=== PATIENT | male | born 1965 | race African-American/Black ===

== ENCOUNTER 2018-06-14 00:14 | Emergency (ER) | payer MEDICARE, MEDICAID ==
[~2018-06-14] VITALS: Ht 185.4 cm; Wt 68.0 kg
[2018-06-14] MEDS ORDERED: ONDANSETRON HCL 4MG/2ML VIAL IV STA (01:38)
[2018-06-14] MEDS ORDERED: MORPHINE SULFATE 4 MG/ML CPJ (NOT FOR IM USE) IV STA (01:38)
[2018-06-14] MEDS ORDERED: FUROSEMIDE 40MG/4ML VIAL IV ONE (01:45)
[2018-06-14 02:20] LABS: BASOPHILS % 0.6 % (0.0-2.0); HEMATOCRIT. 29.7 % (42.0-52.0); HEMOGLOBIN. 10.1 g/dL (14.0-18.0); LYMPHOCYTES % 14.6 % (20.0-50.0); MEAN CORPUSCULAR HEMOGLOBIN 31.1 pg (28.0-32.0); MEAN CORPUSCULAR VOLUME 91.8 fL (80.0-94.0); MEAN PLATELET VOLUME 10.1 fl (7.4-10.4); MONOCYTES % 3.4 % (2.0-8.0); NEUTROPHILS % 81.4 % (40.0-76.0); PLATELET 253 x1000/uL (130-400); RED BLOOD CELL COUNT 3.23 mill/uL (4.7-6.1); RED CELL DISTRIBUTION WIDTH 14.6 % (11.6-14.6)
[2018-06-14 02:23] LABS: CHLORIDE 107 mEq/L (98-107)
[2018-06-14 02:30] LABS: INR 1.1; PARTIAL THROMBOPLASTIN TIME 31.3 sec (23.4-31.0); PROTHROMBIN TIME 11.4 sec (9.1-11.1)
[2018-06-14 02:34] LABS: ETHANOL BLOOD < 10 mg/dL
[2018-06-14 02:53] LABS: CLARITY URINE CLEAR (CLEAR); COLOR URINE YELLOW (YELLOW); KETONES URINE NEGATIVE (NEGATIVE); LEUKOCYTE ESTERASE URINE NEGATIVE (NEGATIVE); NITRITE URINE NEGATIVE (NEGATIVE); OCCULT BLOOD URINE 1+ (NEGATIVE); PROTEIN URINE 3+ (NEGATIVE); SPECIFIC GRAVITY URINE 1.025 (1.005-1.030); UROBILINOGEN URINE 0.2 E.U./dL (0.2-1.0)
[2018-06-14] MEDS ORDERED: INSULIN REGULAR (HUMULIN R) 300UNITS/3ML SUBCUT ONE (03:00)
[2018-06-14 03:19] LABS: *AMPHETAMINES SCREEN URINE NEGATIVE (NEGATIVE); *BARBITURATES SCREEN URINE NEGATIVE (NEGATIVE); *BENZODIAZEPINES SCREEN URINE NEGATIVE (NEGATIVE); *COCAINE SCREEN URINE NEGATIVE (NEGATIVE); METHADONE URINE SCREEN NEGATIVE (NEGATIVE); OPIATES URINE SCREEN PRESUMTIVE POSITIVE (NEGATIVE)
[2018-06-14 03:20] LABS: CANNABINOID URINE SCREEN NEGATIVE (NEGATIVE); PHENCYCLIDINE URINE SCREEN NEGATIVE (NEGATIVE)
[2018-06-14 04:06] VITALS: BP 140/67
== END 2018-06-14 06:46 | disposition left against medical advice (07) ==
LOC: ER 00:14 → CANBEDREQ 06:47
DX: R06.02 Shortness of breath (principal); E87.5 Hyperkalemia; R60.1 Generalized edema; E11.65 Type 2 diabetes mellitus with hyperglycemia; I10 Essential (primary) hypertension; R91.8 Other nonspecific abnormal finding of lung field; Z98.890 Other specified postprocedural states
CPT/HCPCS: 36415; 71045; 80053; 80305; 81003; 82962; 83880; 84484; 85025; 85610; 85730; 93005; 93970; 96372; 96374; 96375; 99285; G0482; J1815; J1940; J2270; J2405

== ENCOUNTER 2018-06-14 22:45 | Emergency (ER) | payer MEDICARE, MEDICAID ==
[~2018-06-14] VITALS: Ht 185.4 cm; Wt 68.2 kg
[2018-06-15] MEDS ORDERED: KETOROLAC 30MG/ML VIAL IV ONE (00:30)
[2018-06-15] MEDS ORDERED: FUROSEMIDE 40MG/4ML VIAL IV ONE (00:30)
[2018-06-15 01:23] LABS: BASOPHILS % 1.1 % (0.0-2.0); HEMATOCRIT. 26.8 % (42.0-52.0); LYMPHOCYTES % 12.7 % (20.0-50.0); MEAN CORPUSCULAR HEMOGLOBIN 31.2 pg (28.0-32.0); MEAN CORPUSCULAR VOLUME 93.4 fL (80.0-94.0); MEAN PLATELET VOLUME 10.6 fl (7.4-10.4); MONOCYTES % 2.9 % (2.0-8.0); NEUTROPHILS % 83.3 % (40.0-76.0); PLATELET 213 x1000/uL (130-400); RED BLOOD CELL COUNT 2.87 mill/uL (4.7-6.1); RED CELL DISTRIBUTION WIDTH 14.2 % (11.6-14.6)
[2018-06-15 01:24] LABS: CHLORIDE 105 mEq/L (98-107)
[2018-06-15] MEDS ORDERED: KETOROLAC 60MG/2ML VIAL IM ONE (01:30)
[2018-06-15 01:34] LABS: INR 1.1; PARTIAL THROMBOPLASTIN TIME 29.6 sec (23.4-31.0); PROTHROMBIN TIME 11.4 sec (9.1-11.1)
[2018-06-15 01:35] LABS: BETA HYDROXYBUTYRATE 0.1 mMol/L (0.0-0.3)
[2018-06-15] MEDS ORDERED: INSULIN LISPRO 100 UNITS/ML SUBCUT NR ×2 (01:45→04:30)
[2018-06-15] MEDS ORDERED: SODIUM CHLORIDE 0.9% 1,000 ML IV ONE ×3 (01:45→06:49)
[2018-06-15] MEDS ORDERED: INSULIN GLARGINE UD 100 UNITS/ML SYR SUBCUT ONE (04:15)
[2018-06-15 06:40] VITALS: BP 172/111
[2018-06-15] MEDS ORDERED: INSULIN REGULAR (HUMULIN R) 300UNITS/3ML IV ONE (07:00)
[2018-06-16] MEDS ORDERED: IBUP-2030 PO (00:12)
[2018-06-16] MEDS ORDERED: AMLO10TA80 PO (00:12)
[2018-06-16] MEDS ORDERED: METF500T6 PO (00:12)
[2018-06-16] MEDS ORDERED: TEMA30CA PO (00:12)
[2018-06-16] MEDS ORDERED: INSU100I28 SQ (00:12)
[2018-06-16] MEDS ORDERED: LOSA50TA20 PO (00:12)
[2018-06-16] MEDS ORDERED: ATOR-2 PO (00:12)
[2018-06-16] MEDS ORDERED: METO25TA6 PO (00:12)
[2018-06-16] MEDS ORDERED: CLOP75TA33 PO (00:12)
[2018-06-16] MEDS ORDERED: ASPI-1159 PO (00:12)
== END 2018-06-15 07:28 | disposition left against medical advice (07) ==
LOC: ER 23:00 → EDBEDREQ 06-15 01:49 → EDBEDREQSVC 06-15 01:49 → EDBEDREQTM 06-15 01:49 → CANRESERV 06-15 02:23 → ENRESERV 06-15 02:23 → EDBEDREQ 06-15 04:27 → CANRESERV 06-15 06:54 → ENRESERV 06-15 06:54 → ER 06-15 07:28 → CANBEDREQ 06-15 07:30
DX: E11.65 Type 2 diabetes mellitus with hyperglycemia (principal); R60.0 Localized edema; R00.0 Tachycardia, unspecified; I11.9 Hypertensive heart disease without heart failure; C34.12 Malignant neoplasm of upper lobe, left bronchus or lung; Z95.1 Presence of aortocoronary bypass graft; Z92.21 Personal history of antineoplastic chemotherapy
CPT/HCPCS: 36415; 71045; 80053; 82010; 82947; 83880; 84484; 85025; 85610; 85730; 93005; 96372; 96374; 99285; J1815; J1885; J1940; J7030

== ENCOUNTER 2018-06-15 16:43 | Inpatient (IN) | payer MEDICARE, MEDICAID ==
[~2018-06-15] VITALS: Ht 185.4 cm; Wt 72.6 kg
[2018-06-15 19:08] LABS: CHLORIDE 104 mEq/L (98-107)
[2018-06-15 19:10] LABS: BASOPHILS % 0.7 % (0.0-2.0); HEMATOCRIT. 27.6 % (42.0-52.0); HEMOGLOBIN. 9.3 g/dL (14.0-18.0); LYMPHOCYTES % 8.1 % (20.0-50.0); MEAN CORPUSCULAR HEMOGLOBIN 30.8 pg (28.0-32.0); MEAN CORPUSCULAR VOLUME 91.5 fL (80.0-94.0); MEAN PLATELET VOLUME 10.5 fl (7.4-10.4); MONOCYTES % 2.6 % (2.0-8.0); NEUTROPHILS % 88.6 % (40.0-76.0); PLATELET 207 x1000/uL (130-400); RED BLOOD CELL COUNT 3.02 mill/uL (4.7-6.1); RED CELL DISTRIBUTION WIDTH 14.5 % (11.6-14.6)
[2018-06-15 19:11] LABS: INR 1.1; PROTHROMBIN TIME 11.5 sec (9.1-11.1)
[2018-06-15] MEDS ORDERED: INSULIN REGULAR (HUMULIN R) 300UNITS/3ML SUBCUT NR (19:30)
[2018-06-15 23:42] LABS: CLARITY URINE CLEAR (CLEAR); COLOR URINE YELLOW (YELLOW); KETONES URINE NEGATIVE (NEGATIVE); LEUKOCYTE ESTERASE URINE NEGATIVE (NEGATIVE); NITRITE URINE NEGATIVE (NEGATIVE); OCCULT BLOOD URINE 1+ (NEGATIVE); PH URINE 5.5 (4.5-8.0); PROTEIN URINE 3+ (NEGATIVE); SPECIFIC GRAVITY URINE 1.029 (1.005-1.030); UROBILINOGEN URINE 0.2 E.U./dL (0.2-1.0)
[2018-06-16] MEDS ORDERED: LOSA50TA20 PO (00:12)
[2018-06-16] MEDS ORDERED: INSU100I28 SQ (00:12)
[2018-06-16] MEDS ORDERED: ATOR-2 PO (00:12)
[2018-06-16] MEDS ORDERED: AMLO10TA80 PO (00:12)
[2018-06-16] MEDS ORDERED: TEMA30CA PO (00:12)
[2018-06-16] MEDS ORDERED: METF500T6 PO (00:12)
[2018-06-16] MEDS ORDERED: ASPI-1159 PO (00:12)
[2018-06-16] MEDS ORDERED: METO25TA6 PO (00:12)
[2018-06-16] MEDS ORDERED: CLOP75TA33 PO (00:12)
[2018-06-16] MEDS ORDERED: IBUP-2030 PO (00:12)
[2018-06-16 00:15] VITALS: BP 149/102
[2018-06-16] MEDS ORDERED: DEXTROSE 50% WATER 50ML SYRINGE IV PRN (00:30)
[2018-06-16] MEDS ORDERED: INSULIN LISPRO 100 UNITS/ML SUBCUT NR (00:45)
[2018-06-16] MEDS: MORPHINE SULFATE 4 MG/ML CPJ (NOT FOR IM USE) IV PRN ×4 (01:30→20:55)
[2018-06-16 06:00] VITALS: BP 145/92
[2018-06-16] MEDS: BLOOD SUGAR DIAGNOSTIC STRIP TEST SCH ×4 (07:40→20:56)
[2018-06-16 08:00] VITALS: BP 148/91
[2018-06-16] MEDS: INSULIN LISPRO 100 UNITS/ML SUBCUT SCH ×6 (08:10→20:57)
[2018-06-16] MEDS: FUROSEMIDE 40MG/4ML VIAL IVP SCH ×2 (08:53→17:49)
[2018-06-16] MEDS: CLOPIDOGREL 75MG TABLET PO SCH (08:53)
[2018-06-16] MEDS: LOSARTAN POTASSIUM 50 MG TABLET PO SCH (08:53)
[2018-06-16] MEDS: AMLODIPINE 10MG TABLET PO SCH (08:53)
[2018-06-16] MEDS: METFORMIN HCL 500MG TABLET PO SCH ×3 (08:54→18:10)
[2018-06-16] MEDS: ASPIRIN 81MG TABLET PO SCH (08:54)
[2018-06-16] MEDS: FAMOTIDINE 20MG TABLET PO SCH ×2 (08:54→20:53)
[2018-06-16] MEDS: METOPROLOL TARTRATE 50MG TABLET PO SCH ×2 (08:54→20:54)
[2018-06-16] MEDS: ENOXAPARIN 40MG/0.4ML SYR SUBCUT SCH (08:55)
[2018-06-16 10:17] LABS: BASOPHILS % 0.5 % (0.0-2.0); EOSINOPHILS % 0.1 % (0.0-5.0); HEMATOCRIT. 27.6 % (42.0-52.0); HEMOGLOBIN. 9.5 g/dL (14.0-18.0); LYMPHOCYTES % 9.5 % (20.0-50.0); MEAN CORPUSCULAR HEMOGLOBIN 30.8 pg (28.0-32.0); MEAN CORPUSCULAR VOLUME 89.6 fL (80.0-94.0); MEAN PLATELET VOLUME 10.3 fl (7.4-10.4); NEUTROPHILS % 87.9 % (40.0-76.0); PLATELET 170 x1000/uL (130-400); RED BLOOD CELL COUNT 3.07 mill/uL (4.7-6.1)
[2018-06-16 12:13] VITALS: BP 136/80
[2018-06-16] MEDS ORDERED: ACETAMINOPHEN 325MG TABLET PO PRN (13:00)
[2018-06-16] MEDS ORDERED: IPRATROPIUM/ALBUTEROL 0.5-3(2.5)MG/3ML NEB HHN PRN (13:00)
[2018-06-16] MEDS ORDERED: VANCOMYCIN 1250MG in DEXTROSE 5% WATER 250ML IV NR (14:00)
[2018-06-16] MEDS: PIPERACILLIN/TAZ 3.375G PREMIX 50 ML IV SCH ×2 (15:07→20:53)
[2018-06-16 16:00] VITALS: BP 137/86
[2018-06-16 20:00] VITALS: BP 156/95
[2018-06-16] MEDS: ATORVASTATIN CALCIUM 40MG TABLET PO SCH (20:53)
[2018-06-16] MEDS ORDERED: INSULIN GLARGINE UD 100 UNITS/ML SYR SUBCUT SCH ×3 (21:00→22:00)
[2018-06-16] MEDS: IPRATROPIUM/ALBUTEROL 0.5-3(2.5)MG/3ML NEB HHN SCH (21:15)
[2018-06-16] MEDS: BUDESONIDE 0.5MG/2ML NEB HHN SCH (21:16)
[2018-06-17] VITALS: BP 145/84
[2018-06-17] MEDS: MORPHINE SULFATE 4 MG/ML CPJ (NOT FOR IM USE) IV PRN ×5 (01:11→20:16)
[2018-06-17] MEDS: PIPERACILLIN/TAZ 3.375G PREMIX 50 ML IV SCH ×4 (01:12→20:38)
[2018-06-17] MEDS: IPRATROPIUM/ALBUTEROL 0.5-3(2.5)MG/3ML NEB HHN SCH ×4 (01:31→22:12)
[2018-06-17 04:00] VITALS: BP 134/78
[2018-06-17] MEDS ORDERED: VANCOMYCIN 1 G PREMIX 200 ML IV SCH (05:00)
[2018-06-17] MEDS: BLOOD SUGAR DIAGNOSTIC STRIP TEST SCH ×4 (05:50→20:25)
[2018-06-17 07:27] LABS: CHLORIDE 108 mEq/L (98-107)
[2018-06-17 07:38] LABS: BASOPHILS % 0.9 % (0.0-2.0); HEMATOCRIT. 28.6 % (42.0-52.0); HEMOGLOBIN. 9.7 g/dL (14.0-18.0); MEAN CORPUSCULAR HEMOGLOBIN 30.7 pg (28.0-32.0); MEAN CORPUSCULAR VOLUME 90.1 fL (80.0-94.0); MONOCYTES % 1.9 % (2.0-8.0); NEUTROPHILS % 84.2 % (40.0-76.0); PLATELET 161 x1000/uL (130-400); RED BLOOD CELL COUNT 3.17 mill/uL (4.7-6.1); RED CELL DISTRIBUTION WIDTH 14.7 % (11.6-14.6)
[2018-06-17 08:00] VITALS: BP 130/86
[2018-06-17] MEDS: INSULIN LISPRO 100 UNITS/ML SUBCUT SCH ×4 (08:10→20:15)
[2018-06-17] MEDS: METFORMIN HCL 500MG TABLET PO SCH ×2 (08:14→18:26)
[2018-06-17] MEDS: BUDESONIDE 0.5MG/2ML NEB HHN SCH ×2 (08:14→22:12)
[2018-06-17] MEDS ORDERED: POTASSIUM CHLORIDE 20MEQ TABLET SR PO NR (10:30)
[2018-06-17] MEDS: FUROSEMIDE 40MG/4ML VIAL IVP SCH ×2 (10:45→17:25)
[2018-06-17] MEDS: FAMOTIDINE 20MG TABLET PO SCH ×2 (10:45→20:12)
[2018-06-17] MEDS: METOPROLOL TARTRATE 50MG TABLET PO SCH ×2 (10:45→20:12)
[2018-06-17] MEDS: ASPIRIN 81MG TABLET PO SCH (10:45)
[2018-06-17] MEDS: LOSARTAN POTASSIUM 50 MG TABLET PO SCH (10:46)
[2018-06-17] MEDS: CLOPIDOGREL 75MG TABLET PO SCH (10:46)
[2018-06-17] MEDS: AMLODIPINE 10MG TABLET PO SCH (10:48)
[2018-06-17] MEDS: ENOXAPARIN 40MG/0.4ML SYR SUBCUT SCH (10:49)
[2018-06-17] MEDS ORDERED: HYDROCODONE/ACETAMINOPHEN 5/325MG TABLET PO PRN (11:15)
[2018-06-17] MEDS ORDERED: IOHEXOL-300 100 ML BOTTLE ONE (11:30)
[2018-06-17 12:00] VITALS: BP 110/84
[2018-06-17] MEDS: DOCUSATE SODIUM 250MG CAPSULE PO SCH (13:00)
[2018-06-17 15:59] LABS: CLARITY URINE CLEAR (CLEAR); COLOR URINE YELLOW (YELLOW); KETONES URINE NEGATIVE (NEGATIVE); LEUKOCYTE ESTERASE URINE NEGATIVE (NEGATIVE); NITRITE URINE NEGATIVE (NEGATIVE); OCCULT BLOOD URINE 1+ (NEGATIVE); PROTEIN URINE 2+ (NEGATIVE); SPECIFIC GRAVITY URINE 1.017 (1.005-1.030); UROBILINOGEN URINE 0.2 E.U./dL (0.2-1.0)
[2018-06-17 16:00] VITALS: BP 124/82
[2018-06-17] MEDS: VANCOMYCIN 1250MG in DEXTROSE 5% WATER 250ML IV SCH (18:29)
[2018-06-17 20:00] VITALS: BP 120/81
[2018-06-17] MEDS: ATORVASTATIN CALCIUM 40MG TABLET PO SCH (20:12)
[2018-06-17] MEDS: INSULIN GLARGINE UD 100 UNITS/ML SYR SUBCUT SCH (20:16)
[2018-06-17] MEDS ORDERED: LACTULOSE 20G/30ML UDC PO PRN (21:00)
[2018-06-18] VITALS: BP 122/84
[2018-06-18] MEDS: MORPHINE SULFATE 4 MG/ML CPJ (NOT FOR IM USE) IV PRN ×3 (00:17→08:23)
[2018-06-18] MEDS: PIPERACILLIN/TAZ 3.375G PREMIX 50 ML IV SCH ×4 (02:00→20:08)
[2018-06-18 04:00] VITALS: BP 112/73
[2018-06-18] MEDS: BLOOD SUGAR DIAGNOSTIC STRIP TEST SCH ×4 (06:11→21:10)
[2018-06-18] MEDS: VANCOMYCIN 1250MG in DEXTROSE 5% WATER 250ML IV SCH ×2 (06:11→18:14)
[2018-06-18 06:54] LABS: CHLORIDE 108 mEq/L (98-107)
[2018-06-18 06:57] LABS: BASOPHILS % 0.9 % (0.0-2.0); EOSINOPHILS % 0.4 % (0.0-5.0); HEMATOCRIT. 28.7 % (42.0-52.0); LYMPHOCYTES % 12.6 % (20.0-50.0); MEAN CORPUSCULAR HEMOGLOBIN 31.4 pg (28.0-32.0); MEAN PLATELET VOLUME 10.7 fl (7.4-10.4); MONOCYTES % 2.1 % (2.0-8.0); PLATELET 145 x1000/uL (130-400); RED BLOOD CELL COUNT 3.18 mill/uL (4.7-6.1); RED CELL DISTRIBUTION WIDTH 14.8 % (11.6-14.6)
[2018-06-18 08:00] VITALS: BP 114/73
[2018-06-18] MEDS: IPRATROPIUM/ALBUTEROL 0.5-3(2.5)MG/3ML NEB HHN SCH ×3 (08:00→21:35)
[2018-06-18] MEDS: BUDESONIDE 0.5MG/2ML NEB HHN SCH ×2 (08:00→21:34)
[2018-06-18] MEDS: INSULIN LISPRO 100 UNITS/ML SUBCUT SCH ×4 (08:09→21:07)
[2018-06-18] MEDS: METFORMIN HCL 500MG TABLET PO SCH ×2 (08:24→18:14)
[2018-06-18] MEDS: DOCUSATE SODIUM 250MG CAPSULE PO SCH (09:00)
[2018-06-18] MEDS: FUROSEMIDE 40MG/4ML VIAL IVP SCH ×2 (09:27→17:13)
[2018-06-18] MEDS: AMLODIPINE 10MG TABLET PO SCH (09:28)
[2018-06-18] MEDS: LOSARTAN POTASSIUM 50 MG TABLET PO SCH (09:28)
[2018-06-18] MEDS: FAMOTIDINE 20MG TABLET PO SCH ×2 (09:28→20:10)
[2018-06-18] MEDS: METOPROLOL TARTRATE 50MG TABLET PO SCH ×2 (09:28→20:11)
[2018-06-18] MEDS: ASPIRIN 81MG TABLET PO SCH (09:28)
[2018-06-18] MEDS: CLOPIDOGREL 75MG TABLET PO SCH (09:28)
[2018-06-18] MEDS: ENOXAPARIN 40MG/0.4ML SYR SUBCUT SCH (09:28)
[2018-06-18 12:00] VITALS: BP 125/86
[2018-06-18] MEDS: HYDROMORPHONE HCL/PF 2MG/ML CPJ IV PRN ×3 (12:34→21:10)
[2018-06-18 16:00] VITALS: BP 120/83
[2018-06-18 20:00] VITALS: BP 138/92
[2018-06-18] MEDS: OXYCODONE HCL 10MG TABLET SR 12HR PO SCH (20:11)
[2018-06-18] MEDS: ATORVASTATIN CALCIUM 40MG TABLET PO SCH (20:11)
[2018-06-18] MEDS: INSULIN GLARGINE UD 100 UNITS/ML SYR SUBCUT SCH (21:09)
[2018-06-19] VITALS: BP 127/79
[2018-06-19] MEDS: HYDROMORPHONE HCL/PF 2MG/ML CPJ IV PRN ×6 (01:01→21:39)
[2018-06-19] MEDS: PIPERACILLIN/TAZ 3.375G PREMIX 50 ML IV SCH ×4 (01:02→21:00)
[2018-06-19] MEDS: ZOLPIDEM TARTRATE 5MG TABLET PO PRN ×2 (01:10→21:01)
[2018-06-19] MEDS: IPRATROPIUM/ALBUTEROL 0.5-3(2.5)MG/3ML NEB HHN SCH ×4 (01:19→21:09)
[2018-06-19 04:00] VITALS: BP 119/79
[2018-06-19 04:17] LABS: CHLORIDE 105 mEq/L (98-107)
[2018-06-19 04:19] LABS: BASOPHILS % 0.8 % (0.0-2.0); EOSINOPHILS % 0.4 % (0.0-5.0); HEMATOCRIT. 28.8 % (42.0-52.0); LYMPHOCYTES % 14.3 % (20.0-50.0); MEAN CORPUSCULAR HEMOGLOBIN 31.1 pg (28.0-32.0); MEAN CORPUSCULAR VOLUME 89.8 fL (80.0-94.0); MEAN PLATELET VOLUME 10.8 fl (7.4-10.4); MONOCYTES % 3.4 % (2.0-8.0); NEUTROPHILS % 81.1 % (40.0-76.0); PLATELET 162 x1000/uL (130-400); RED BLOOD CELL COUNT 3.21 mill/uL (4.7-6.1); RED CELL DISTRIBUTION WIDTH 14.6 % (11.6-14.6)
[2018-06-19 04:25] LABS: VANCOMYCIN TROUGH 28.6 ug/mL (5.0-10.0)
[2018-06-19] MEDS: VANCOMYCIN 1250MG in DEXTROSE 5% WATER 250ML IV SCH (05:00)
[2018-06-19] MEDS: BLOOD SUGAR DIAGNOSTIC STRIP TEST SCH ×4 (07:12→21:01)
[2018-06-19] MEDS: INSULIN LISPRO 100 UNITS/ML SUBCUT SCH ×4 (07:13→21:00)
[2018-06-19 08:00] VITALS: BP 134/86
[2018-06-19] MEDS: METFORMIN HCL 500MG TABLET PO SCH ×2 (08:06→18:42)
[2018-06-19] MEDS: AMLODIPINE 10MG TABLET PO SCH (08:57)
[2018-06-19] MEDS: LOSARTAN POTASSIUM 50 MG TABLET PO SCH (08:57)
[2018-06-19] MEDS: FAMOTIDINE 20MG TABLET PO SCH ×2 (08:57→21:01)
[2018-06-19] MEDS: FUROSEMIDE 40MG/4ML VIAL IVP SCH ×2 (08:57→17:21)
[2018-06-19] MEDS: OXYCODONE HCL 10MG TABLET SR 12HR PO SCH ×2 (08:58→21:07)
[2018-06-19] MEDS: ENOXAPARIN 40MG/0.4ML SYR SUBCUT SCH (08:58)
[2018-06-19] MEDS: DOCUSATE SODIUM 250MG CAPSULE PO SCH ×2 (08:58→09:00)
[2018-06-19] MEDS: METOPROLOL TARTRATE 50MG TABLET PO SCH ×2 (08:58→21:01)
[2018-06-19] MEDS: ASPIRIN 81MG TABLET PO SCH (08:58)
[2018-06-19] MEDS: CLOPIDOGREL 75MG TABLET PO SCH (08:59)
[2018-06-19] MEDS: BUDESONIDE 0.5MG/2ML NEB HHN SCH ×2 (09:55→21:09)
[2018-06-19] MEDS: POTASSIUM CHLORIDE 20MEQ TABLET SR PO SCH (11:03)
[2018-06-19 12:00] VITALS: BP 125/87
[2018-06-19 17:40] VITALS: BP 125/87
[2018-06-19 20:16] VITALS: BP 137/83
[2018-06-19] MEDS ORDERED: BUDESONIDE 0.5MG/2ML NEB ONE (20:57)
[2018-06-19] MEDS: ATORVASTATIN CALCIUM 40MG TABLET PO SCH (21:00)
[2018-06-19] MEDS: INSULIN GLARGINE UD 100 UNITS/ML SYR SUBCUT SCH (21:10)
[2018-06-20] VITALS (7 sets, daily range): BP systolic 113–137; BP diastolic 60–96
[2018-06-20] MEDS: VANCOMYCIN 1250MG in DEXTROSE 5% WATER 250ML IV SCH ×2 (00:27→17:47)
[2018-06-20] MEDS: HYDROMORPHONE HCL/PF 2MG/ML CPJ IV PRN ×3 (05:06→20:05)
[2018-06-20] MEDS: PIPERACILLIN/TAZ 3.375G PREMIX 50 ML IV SCH ×4 (05:07→20:04)
[2018-06-20] MEDS: BLOOD SUGAR DIAGNOSTIC STRIP TEST SCH ×4 (07:40→20:05)
[2018-06-20] MEDS: ASPIRIN 81MG TABLET PO SCH (08:58)
[2018-06-20] MEDS: METFORMIN HCL 500MG TABLET PO SCH ×2 (08:58→17:43)
[2018-06-20] MEDS: FAMOTIDINE 20MG TABLET PO SCH ×2 (08:59→20:04)
[2018-06-20] MEDS: AMLODIPINE 10MG TABLET PO SCH (08:59)
[2018-06-20] MEDS: CLOPIDOGREL 75MG TABLET PO SCH (08:59)
[2018-06-20] MEDS: POTASSIUM CHLORIDE 20MEQ TABLET SR PO SCH (08:59)
[2018-06-20] MEDS: LOSARTAN POTASSIUM 50 MG TABLET PO SCH ×2 (08:59→09:09)
[2018-06-20] MEDS ORDERED: FUROSEMIDE 40MG TABLET PO SCH (09:00)
[2018-06-20] MEDS: DOCUSATE SODIUM 250MG CAPSULE PO SCH (09:00)
[2018-06-20] MEDS: ENOXAPARIN 40MG/0.4ML SYR SUBCUT SCH (09:01)
[2018-06-20] MEDS: INSULIN LISPRO 100 UNITS/ML SUBCUT SCH ×4 (09:08→20:12)
[2018-06-20] MEDS: OXYCODONE HCL 10MG TABLET SR 12HR PO SCH ×2 (09:09→21:13)
[2018-06-20] MEDS: METOPROLOL TARTRATE 50MG TABLET PO SCH ×2 (09:15→20:04)
[2018-06-20] MEDS: FUROSEMIDE 40MG/4ML VIAL IVP SCH (09:19)
[2018-06-20] MEDS: IPRATROPIUM/ALBUTEROL 0.5-3(2.5)MG/3ML NEB HHN SCH ×4 (10:05→20:19)
[2018-06-20] MEDS: FUROSEMIDE 40MG TABLET PO SCH (17:40)
[2018-06-20] MEDS: ATORVASTATIN CALCIUM 40MG TABLET PO SCH (20:04)
[2018-06-20] MEDS: INSULIN GLARGINE UD 100 UNITS/ML SYR SUBCUT SCH (21:12)
[2018-06-20] MEDS: ZOLPIDEM TARTRATE 5MG TABLET PO PRN (23:23)
[2018-06-21] VITALS: BP 113/74
[2018-06-21] MEDS: PIPERACILLIN/TAZ 3.375G PREMIX 50 ML IV SCH ×4 (01:49→21:43)
[2018-06-21] MEDS: IPRATROPIUM/ALBUTEROL 0.5-3(2.5)MG/3ML NEB HHN SCH ×4 (02:00→20:39)
[2018-06-21] MEDS: HYDROMORPHONE HCL/PF 2MG/ML CPJ IV PRN ×3 (02:01→22:27)
[2018-06-21 04:00] VITALS: BP 133/92
[2018-06-21] MEDS: BLOOD SUGAR DIAGNOSTIC STRIP TEST SCH ×4 (06:12→21:00)
[2018-06-21] MEDS: FUROSEMIDE 40MG TABLET PO SCH ×2 (06:13→17:32)
[2018-06-21 08:00] VITALS: BP 115/84
[2018-06-21] MEDS: INSULIN LISPRO 100 UNITS/ML SUBCUT SCH ×4 (08:10→22:13)
[2018-06-21] MEDS: DOCUSATE SODIUM 250MG CAPSULE PO SCH (08:29)
[2018-06-21] MEDS: CLOPIDOGREL 75MG TABLET PO SCH (08:29)
[2018-06-21] MEDS: FAMOTIDINE 20MG TABLET PO SCH ×2 (08:29→21:43)
[2018-06-21] MEDS: AMLODIPINE 10MG TABLET PO SCH (08:29)
[2018-06-21] MEDS: METOPROLOL TARTRATE 50MG TABLET PO SCH ×2 (08:29→21:46)
[2018-06-21] MEDS: OXYCODONE HCL 10MG TABLET SR 12HR PO SCH ×2 (08:30→21:45)
[2018-06-21] MEDS: METFORMIN HCL 500MG TABLET PO SCH ×2 (08:30→17:32)
[2018-06-21] MEDS: ASPIRIN 81MG TABLET PO SCH (08:30)
[2018-06-21] MEDS: POTASSIUM CHLORIDE 20MEQ TABLET SR PO SCH (08:30)
[2018-06-21] MEDS: ENOXAPARIN 40MG/0.4ML SYR SUBCUT SCH (08:32)
[2018-06-21 12:00] VITALS: BP 122/75
[2018-06-21 12:15] LABS: BASOPHILS % 0.4 % (0.0-2.0); EOSINOPHILS % 0.3 % (0.0-5.0); HEMATOCRIT. 25.8 % (42.0-52.0); LYMPHOCYTES % 27.3 % (20.0-50.0); MEAN CORPUSCULAR HEMOGLOBIN 31.4 pg (28.0-32.0); MEAN CORPUSCULAR VOLUME 89.6 fL (80.0-94.0); MEAN PLATELET VOLUME 10.2 fl (7.4-10.4); MONOCYTES % 8.5 % (2.0-8.0); NEUTROPHILS % 63.5 % (40.0-76.0); PLATELET 199 x1000/uL (130-400); RED BLOOD CELL COUNT 2.88 mill/uL (4.7-6.1); RED CELL DISTRIBUTION WIDTH 14.5 % (11.6-14.6)
[2018-06-21] MEDS: VANCOMYCIN 1250MG in DEXTROSE 5% WATER 250ML IV SCH (12:20)
[2018-06-21 16:00] VITALS: BP 148/90
[2018-06-21] MEDS ORDERED: IOHEXOL-300 100 ML BOTTLE ONE (19:03)
[2018-06-21 20:00] VITALS: BP 116/112
[2018-06-21] MEDS: ATORVASTATIN CALCIUM 40MG TABLET PO SCH (22:07)
[2018-06-21] MEDS: INSULIN GLARGINE UD 100 UNITS/ML SYR SUBCUT SCH (22:14)
[2018-06-22] VITALS: BP 175/102
[2018-06-22] MEDS ORDERED: CLONIDINE 0.2MG TABLET PO PRN (01:30)
[2018-06-22] MEDS: PIPERACILLIN/TAZ 3.375G PREMIX 50 ML IV SCH ×2 (01:40→08:36)
[2018-06-22] MEDS: IPRATROPIUM/ALBUTEROL 0.5-3(2.5)MG/3ML NEB HHN SCH (02:01)
[2018-06-22] MEDS: HYDROMORPHONE HCL/PF 2MG/ML CPJ IV PRN ×2 (02:24→06:34)
[2018-06-22 04:00] VITALS: BP 142/74
[2018-06-22] MEDS: FUROSEMIDE 40MG TABLET PO SCH (05:27)
[2018-06-22] MEDS: BLOOD SUGAR DIAGNOSTIC STRIP TEST SCH (06:57)
[2018-06-22] MEDS: INSULIN LISPRO 100 UNITS/ML SUBCUT SCH (06:58)
[2018-06-22] MEDS: DOCUSATE SODIUM 250MG CAPSULE PO SCH (08:28)
[2018-06-22] MEDS: AMLODIPINE 10MG TABLET PO SCH (08:29)
[2018-06-22] MEDS: CLOPIDOGREL 75MG TABLET PO SCH (08:29)
[2018-06-22] MEDS: ASPIRIN 81MG TABLET PO SCH (08:29)
[2018-06-22] MEDS: METOPROLOL TARTRATE 50MG TABLET PO SCH (08:29)
[2018-06-22] MEDS: METFORMIN HCL 500MG TABLET PO SCH (08:29)
[2018-06-22] MEDS: POTASSIUM CHLORIDE 20MEQ TABLET SR PO SCH (08:29)
[2018-06-22] MEDS: LOSARTAN POTASSIUM 50 MG TABLET PO SCH (08:29)
[2018-06-22] MEDS: FAMOTIDINE 20MG TABLET PO SCH (08:29)
[2018-06-22] MEDS: OXYCODONE HCL 10MG TABLET SR 12HR PO SCH (08:29)
[2018-06-22] MEDS: ENOXAPARIN 40MG/0.4ML SYR SUBCUT SCH (08:30)
[2018-06-22 10:19] VITALS: BP 120/70
[2018-06-22] MEDS ORDERED: VANCOMYCIN 1 G PREMIX 200 ML IV SCH (18:00)
== END 2018-06-22 12:30 | disposition home or self-care (01) | DRG 871 ==
LOC: ER 16:43 → 7WST 20:34 → ENRESERV 21:23
PROVIDERS: ADMIT Internal Medicine; ATTEND Internal Medicine
DX: A41.9 Sepsis, unspecified organism (principal); E43 Unspecified severe protein-calorie malnutrition; J96.00 Acute respiratory failure, unspecified whether with hypoxia or hypercapnia; I50.43 Acute on chronic combined systolic (congestive) and diastolic (congestive) heart failure; C34.90 Malignant neoplasm of unspecified part of unspecified bronchus or lung; E78.5 Hyperlipidemia, unspecified; J44.9 Chronic obstructive pulmonary disease, unspecified; E11.40 Type 2 diabetes mellitus with diabetic neuropathy, unspecified; E11.65 Type 2 diabetes mellitus with hyperglycemia; D63.0 Anemia in neoplastic disease; I50.9 Heart failure, unspecified; I11.0 Hypertensive heart disease with heart failure; I89.0 Lymphedema, not elsewhere classified; Z60.2 Problems related to living alone; I25.10 Atherosclerotic heart disease of native coronary artery without angina pectoris; I25.2 Old myocardial infarction; Z79.4 Long term (current) use of insulin; Z87.891 Personal history of nicotine dependence; Z95.1 Presence of aortocoronary bypass graft; Z92.21 Personal history of antineoplastic chemotherapy; Z79.899 Other long term (current) drug therapy; Z79.82 Long term (current) use of aspirin; Z68.31 Body mass index [BMI] 31.0-31.9, adult
CPT/HCPCS: 36415; 70491; 71045; 71270; 74178; 80048; 80053; 80202; 80305; 81003; 82010; 82962; 83880; 84145; 84484; 85025; 85610; 85730; 87040; 87086; 93005; 93306; 93970; 94640; 96365; 96372; 96374; 96375; 97162; 99285; G0482; J1170; J1650; J1815; J1940; J2270; J2405; J2543; J3370; J7040; J7050; J7060; J7620; J7626; Q9967